=== PATIENT | female | born 1965 | race Caucasian/White ===

== ENCOUNTER 2024-09-29 08:56 | Emergency (ER) | payer MEDICARE, OTHER ==
[~2024-09-29] VITALS: Ht 147.3 cm; Wt 88.7 kg
[2024-09-29 13:16] VITALS: TEMP 102.8
[2024-09-29] MEDS: acetaminophen 325mg tablet PO ONE (13:27)
[2024-09-29] MEDS: albuterol 2.5 MG/3 ML nebule NEB ONE (14:33)
[2024-09-29 14:34] VITALS: PULSE 113; PULSE 96; RESP 18; RESP 20; O2SAT 96; O2SAT 98
[2024-09-29] MEDS ORDERED: PRED20TA PO (15:52)
[2024-09-29] MEDS ORDERED: AZIT250T83 PO (15:52)
[2024-09-29] MEDS ORDERED: HYDR473S79 PO (15:52)
[2024-09-29 16:00] VITALS: BP 132/84; PULSE 112; RESP 16; O2SAT 94
== END 2024-09-29 16:02 | disposition home or self-care (01) ==
LOC: ER 08:56
DX: J06.9 Acute upper respiratory infection, unspecified (principal); Z72.89 Other problems related to lifestyle
CPT/HCPCS: 71045; 87502; 87503; 94640; 99284